=== PATIENT | female | born 1960 | race Caucasian/White ===

== ENCOUNTER → 2020-06-15 10:53 | Outpatient (BNVA) | payer MEDICAID, SELFPAY | PROVIDERS: PCP Orthopaedic Surgery; Visit Provider Specialist | DX: G40.219 Localization-related (focal) (partial) symptomatic epilepsy and epileptic syndromes with complex partial seizures, intractable, without status epilepticus (principal); G40.909 Epilepsy, unspecified, not intractable, without status epilepticus; M79.604 Pain in right leg; R27.0 Ataxia, unspecified; F17.210 Nicotine dependence, cigarettes, uncomplicated | CPT/HCPCS: 99205 ==

== ENCOUNTER 2020-06-15 12:42 | Outpatient (CLI) | payer MEDICAID, SELFPAY ==
--- NOTE | 2020-06-15 12:47 | XR_ITS ---
WS: [id number] Exam: XR tibia fibula RT 2V [id number] Date/Time of Exam: 06/15/2020 12:49 PM Reason For Exam: T14.8XXA - Other injury of unspecified body region, initial encounter In multiple views, no fractures, soft tissue swelling, or unusual calcifications are noted in or arou nd the tibia and fibula. There is normal bony alignment. No irregularity to the bony architecture i s noted. XR/XR tibia fibula RT 2V [id number] IMPRESSION: Negative tibia and fibula.
[2020-06-15 15:34] LABS: Phenytoin Dilantin 6.3 ug/mL (10-20)
[2020-06-15 15:40] LABS: Valproic Acid Level < 2.8 ug/mL (50-100)
== END 2020-06-15 12:43 | disposition home or self-care (01) ==
PROVIDERS: PCP Orthopaedic Surgery; Visit Provider Specialist
DX: G40.909 Epilepsy, unspecified, not intractable, without status epilepticus (principal); T14.8XXA Other injury of unspecified body region, initial encounter; X58.XXXA Exposure to other specified factors, initial encounter
CPT/HCPCS: 36415; 73590; 80164; 80185

== ENCOUNTER → 2020-07-13 13:00 | Outpatient (BNVA) | payer MEDICAID, SELFPAY | PROVIDERS: PCP Orthopaedic Surgery; Visit Provider Specialist | DX: G40.219 Localization-related (focal) (partial) symptomatic epilepsy and epileptic syndromes with complex partial seizures, intractable, without status epilepticus (principal); G43.711 Chronic migraine without aura, intractable, with status migrainosus; F17.210 Nicotine dependence, cigarettes, uncomplicated | CPT/HCPCS: 99214 ==

== ENCOUNTER 2020-07-13 15:44 | Outpatient (CLI) | payer MEDICAID, SELFPAY ==
[2020-07-13 16:48] LABS: Valproic Acid Level 2.8 ug/mL (50-100)
== END 2020-07-13 15:45 | disposition home or self-care (01) ==
PROVIDERS: PCP Orthopaedic Surgery; Visit Provider Specialist
DX: G40.219 Localization-related (focal) (partial) symptomatic epilepsy and epileptic syndromes with complex partial seizures, intractable, without status epilepticus (principal)
CPT/HCPCS: 36415; 80164

== ENCOUNTER → 2020-11-03 14:14 | Outpatient (BNVA) | payer MEDICAID, SELFPAY | PROVIDERS: PCP Orthopaedic Surgery; Visit Provider Specialist | DX: G40.219 Localization-related (focal) (partial) symptomatic epilepsy and epileptic syndromes with complex partial seizures, intractable, without status epilepticus (principal); G43.711 Chronic migraine without aura, intractable, with status migrainosus; F17.200 Nicotine dependence, unspecified, uncomplicated | CPT/HCPCS: 99214 ==

== ENCOUNTER → 2022-09-12 11:09 | Outpatient (BNVA) | payer MEDICAID, SELFPAY | PROVIDERS: PCP Orthopaedic Surgery; Visit Provider Nurse Practitioner Family | DX: M25.532 Pain in left wrist (principal); M16.11 Unilateral primary osteoarthritis, right hip; W19.XXXA Unspecified fall, initial encounter | CPT/HCPCS: 73502 ==

== ENCOUNTER → 2022-09-19 13:44 | Outpatient (BNVA) | payer MEDICAID, SELFPAY | PROVIDERS: PCP Orthopaedic Surgery; Visit Provider Emergency Medicine | DX: S69.92XA Unspecified injury of left wrist, hand and finger(s), initial encounter (principal); S79.911A Unspecified injury of right hip, initial encounter; W19.XXXA Unspecified fall, initial encounter; M16.11 Unilateral primary osteoarthritis, right hip | CPT/HCPCS: 73110; 73502 ==

== ENCOUNTER → 2023-05-10 14:55 | Outpatient (BNVA) | payer MEDICAID, SELFPAY | PROVIDERS: PCP Orthopaedic Surgery; Visit Provider Student in an Organized Health Care Education/Training Program | DX: M70.61 Trochanteric bursitis, right hip; M54.50 Low back pain, unspecified | CPT/HCPCS: 20610; 73522; 99204; J3301; J3490 ==

== ENCOUNTER → 2023-06-01 09:22 | Outpatient (BNVA) | payer MEDICAID, SELFPAY | PROVIDERS: PCP Orthopaedic Surgery; Referring Provider Student in an Organized Health Care Education/Training Program; Visit Provider Orthopaedic Surgery | DX: M47.894 Other spondylosis, thoracic region (principal); M47.892 Other spondylosis, cervical region; M54.50 Low back pain, unspecified; M54.2 Cervicalgia | CPT/HCPCS: 72050; 72070; 72110; 99204 ==

== ENCOUNTER → 2024-10-29 14:49 | Outpatient (BNVA) | payer MEDICAID, SELFPAY | PROVIDERS: PCP Family Medicine; Visit Provider Student in an Organized Health Care Education/Training Program | DX: M70.61 Trochanteric bursitis, right hip (principal) | CPT/HCPCS: 20610; 73502; 99213; J3301; J3490; J9999 ==